=== PATIENT | female | born 1980 | race American Indian/Alaskan Native ===

== ENCOUNTER 2021-01-23 13:26 | Observation (INO) | payer MEDICAID ==
[2021-01-23] MEDS ORDERED: MORPHINE 4 MG/1 ML INJ IV ONE (14:37)
[2021-01-23] MEDS ORDERED: ONDANSETRON 4 MG/2 ML INJ IV ONE (14:37)
[2021-01-23] MEDS ORDERED: SODIUM CHLORIDE 0.9% 1000 ML 1,000 ML IV ONE (14:37)
--- NOTE | 2021-01-23 15:44 | Emergency Department Report ---
ED Abdominal Pain HPI - General Chief Complaint: Abdominal Pain Stated Complaint: BK/ABD PAIN/ VOMITING Time Seen by Provider: 01/23/21 14:36 Source: patient Mode of arrival: Ambulatory Limitations: No Limitations - History of Present Illness Initial Comments: Patient is a 40-year-old female presents emergency room complaints of left flank pain that radiates to her lower abdomen that began at 4 AM this morning. She has associated nausea and vomiting. She is having normal bowel movements. She states that she is also been having dysuria. She denies any fever, diarrhea, hematochezia, melena, hematemesis, abnormal vaginal discharge. Past medical history of nephrolithiasis requiring stent 2 years ago. Allergy to prochlorperazine and sumatriptan. She has a past abdominal surgical history of appendectomy and and hernia repair Severity scale (0 -10): 9 - Related Data Allergies Allergy/AdvReac Type Severity Reaction Status Date / Time prochlorperazine Allergy Swelling Verified 01/23/21 14:33 [From Compazine] sumatriptan [From Imitrex] Allergy Swelling Verified 01/23/21 14:33 ED Review of Systems ROS: Stated complaint: BK/ABD PAIN/ VOMITING Other details as noted in HPI Comment: All other systems reviewed and negative ED Physical Exam - General Limitations: No Limitations General appearance: alert, in no apparent distress - Head Head exam: Present: atraumatic, normocephalic - Eye Eye exam: Present: normal appearance - ENT ENT exam: Present: mucous membranes moist - Respiratory Respiratory exam: Present: normal lung sounds bilaterally. Absent: respiratory distress, wheezes, rales, rhonchi, stridor, chest wall tenderness, accessory muscle use, decreased breath sounds, prolonged expiratory - Cardiovascular Cardiovascular Exam: Present: regular rate, normal rhythm, normal heart sounds. Absent: systolic murmur, diastolic murmur, rubs, gallop - GI/Abdominal GI/Abdominal exam: Present: soft, tenderness (mild LLQ), normal bowel sounds. Absent: distended, guarding, rebound, rigid - Back Exam Back exam: Present: CVA tenderness (L). Absent: CVA tenderness (R) - Neurological Exam Neurological exam: Present: alert, oriented X3 - Psychiatric Psychiatric exam: Present: normal affect, normal mood - Skin Skin exam: Present: warm, dry, intact ED Course Vital Signs 01/23/21 01/23/21 01/23/21 14:29 20:18 20:29 Temperature 98 F 98.4 F 98.4 F Pulse Rate 93 H 94 H 91 H Respiratory 16 12 17 Rate Blood Pressure 131/74 143/85 Blood Pressure 159/90 [Right] O2 Sat by Pulse 97 100 100 Oximetry 01/23/21 01/23/21 20:33 21:03 Temperature 98.4 F 98.1 F Pulse Rate 84 92 H Respiratory 17 15 Rate Blood Pressure 143/85 144/91 Blood Pressure [Right] O2 Sat by Pulse 100 99 Oximetry - Consultations Consultation #1: 01/23/21 17:[address] Kwan, hospitalist who advised to consult Dr. Ley, support dba 01/23/21 18:[address] Ley, support dba he is going to consult on patient 01/23/21 19:[address] Ley, support dba he advised to give 2 unit pRBC and one unit of PLT and to admit to hospitalist service 01/23/21 20:[address] Kwan, hospitalist who accept and resume care of patient, will admit to hospitalist service ED Medical Decision Making - Lab Data Result diagrams: 01/23/21 20:04 01/23/21 15:15 Lab Results 01/23/21 01/23/21 01/23/21 Range/Units 15:15 15:15 16:20 WBC 1.7 L* (4.5-11.0) K/mm3 RBC 1.80 L (3.65-5.03) M/mm3 Hgb 5.9 L* (10.1-14.3) gm/dl Hct 17.5 L* (30.3-42.9) % MCV 97 (79-97) fl MCH 33 H (28-32) pg MCHC 34 (30-34) % RDW 14.8 (13.2-15.2) % Plt Count 19 L* (140-440) K/mm3 Lymph % (Auto) Store Standards Associate [place] % (Auto) Store Standards Associate Eos % (Auto) Store Standards Associate Baso % (Auto) Store Standards Associate Lymph # (Auto) Store Standards Associate [place] # (Auto) Store Standards Associate Eos # (Auto) Store Standards Associate Baso # (Auto) Store Standards Associate Add Manual Diff Complete Total Counted 100 Seg Neutrophils % Store Standards Associate Seg Neuts % (Manual) 18.0 L (40.0-70.0) % Lymphocytes % (Manual) 82.0 H (13.4-35.0) % Nucleated RBC % Not Reportable Seg Neutrophils # Store Standards Associate Seg Neutrophils # Man 0.3 L (1.8-7.7) K/mm3 Band Neutrophils # 0.0 K/mm3 Lymphocytes # (Manual) 1.4 (1.2-5.4) K/mm3 Abs React Lymphs (Man) 0.0 K/mm3 Monocytes # (Manual) 0.0 (0.0-0.8) K/mm3 Eosinophils # (Manual) 0.0 (0.0-0.4) K/mm3 Basophils # (Manual) 0.0 (0.0-0.1) K/mm3 Metamyelocytes # 0.0 K/mm3 Myelocytes # 0.0 K/mm3 Promyelocytes # 0.0 K/mm3 Blast Cells # 0.0 K/mm3 WBC Morphology Not Reportable Hypersegmented Neuts Few Hyposegmented Neuts Not Reportable Hypogranular Neuts Not Reportable Smudge Cells Not Reportable Toxic Granulation Not Reportable Toxic Vacuolation Not Reportable Dohle Bodies Not Reportable Pelger-Huet Anomaly Not Reportable Katie Rods Not Reportable Platelet Estimate Appears decreased Clumped Platelets Not Reportable Plt Clumps, EDTA Not Reportable Large Platelets Not Reportable Giant Platelets Not Reportable Platelet Satelliting Not Reportable Plt Morphology Comment Not Reportable RBC Morphology Normal Dimorphic RBCs Not Reportable Polychromasia Not Reportable Hypochromasia Not Reportable Poikilocytosis Not Reportable Anisocytosis Not Reportable Microcytosis Not Reportable Macrocytosis Not Reportable Spherocytes Not Reportable Pappenheimer Bodies Not Reportable Sickle Cells Not Reportable Target Cells Not Reportable Tear Drop Cells Not Reportable Ovalocytes Not Reportable Helmet Cells Not Reportable Jacobs-Sims Bodies Not Reportable [place] Rings Not Reportable [place] Cells Not Reportable Bite Cells Not Reportable Crenated Cell Not Reportable Elliptocytes Not Reportable Acanthocytes (Spur) Not Reportable Rouleaux Not Reportable Hemoglobin C Crystals Not Reportable Schistocytes Not Reportable Malaria parasites Not Reportable Fer Bodies Not Reportable Hem Pathologist Commnt No PT (12.2-14.9) Sec. INR (0.87-1.13) APTT (24.2-36.6) Sec. Fibrinogen (211-480) mg/dl Sodium 135 L (137-145) mmol/L Potassium 4.7 (3.6-5.0) mmol/L Chloride 105.1 (98-107) mmol/L Carbon Dioxide 18 L (22-30) mmol/L Anion Gap 17 mmol/L BUN 9 (7-17) mg/dL Creatinine 0.6 (0.6-1.2) mg/dL Estimated GFR > 60 ml/min BUN/Creatinine Ratio 15 % Glucose 83 (65-100) mg/dL Calcium 9.6 (8.4-10.2) mg/dL Total Bilirubin 0.30 (0.1-1.2) mg/dL AST 20 (5-40) units/L ALT 13 (7-56) units/L Alkaline Phosphatase 105 (35-129) units/L Lactate Dehydrogenase (91-180) units/L Total Protein 8.0 (6.3-8.2) g/dL Albumin 4.3 (3.9-5) g/dL Albumin/Globulin Ratio 1.2 % Lipase 19 (13-60) units/L HCG, Qual Negative (Negative) Urine Color (Yellow) Urine Turbidity (Clear) Urine pH (5.0-7.0) Ur Specific [place] (1.003-1.030) Urine Protein (Negative) mg/dL Urine Glucose (UA) (Negative) mg/dL Urine Ketones (Negative) mg/dL Urine Blood (Negative) Urine Nitrite (Negative) Urine Bilirubin (Negative) Urine Urobilinogen (<2.0) mg/dL Ur Leukocyte Esterase (Negative) Urine WBC (Auto) (0.0-6.0) /HPF Urine RBC (Auto) (0.0-6.0) /HPF U Epithel Cells (Auto) (0-13.0) /HPF Urine Mucus /HPF Blood Type Antibody Screen Crossmatch 01/23/21 01/23/21 01/23/21 Range/Units 17:05 17:56 18:43 WBC (4.5-11.0) K/mm3 RBC (3.65-5.03) M/mm3 Hgb (10.1-14.3) gm/dl Hct (30.3-42.9) % MCV (79-97) fl MCH (28-32) pg MCHC (30-34) % RDW (13.2-15.2) % Plt Count (140-440) K/mm3 Lymph % (Auto) [place] % (Auto) Eos % (Auto) Baso % (Auto) Lymph # (Auto) [place] # (Auto) Eos # (Auto) Baso # (Auto) Add Manual Diff Total Counted Seg Neutrophils % Seg Neuts % (Manual) (40.0-70.0) % Lymphocytes % (Manual) (13.4-35.0) % Nucleated RBC % Seg Neutrophils # Seg Neutrophils # Man (1.8-7.7) K/mm3 Band Neutrophils # K/mm3 Lymphocytes # (Manual) (1.2-5.4) K/mm3 Abs React Lymphs (Man) K/mm3 Monocytes # (Manual) (0.0-0.8) K/mm3 Eosinophils # (Manual) (0.0-0.4) K/mm3 Basophils # (Manual) (0.0-0.1) K/mm3 Metamyelocytes # K/mm3 Myelocytes # K/mm3 Promyelocytes # K/mm3 Blast Cells # K/mm3 WBC Morphology Hypersegmented Neuts Hyposegmented Neuts Hypogranular Neuts Smudge Cells Toxic Granulation Toxic Vacuolation Dohle Bodies Pelger-Huet Anomaly Ktaie Rods Platelet Estimate Clumped Platelets Plt Clumps, EDTA Large Platelets Giant Platelets Platelet Satelliting Plt Morphology Comment RBC Morphology Dimorphic RBCs Polychromasia Hypochromasia Poikilocytosis Anisocytosis Microcytosis Macrocytosis Spherocytes Pappenheimer Bodies Sickle Cells Target Cells Tear Drop Cells Ovalocytes Helmet Cells Jacobs-Sims Bodies [place] Rings [place] Cells Bite Cells Crenated Cell Elliptocytes Acanthocytes (Spur) Rouleaux Hemoglobin C Crystals Schistocytes Malaria parasites Fer Bodies Hem Pathologist Commnt PT 14.0 (12.2-14.9) Sec. INR 1.03 (0.87-1.13) APTT 23.4 L (24.2-36.6) Sec. Fibrinogen 212 (211-480) mg/dl Sodium (137-145) mmol/L Potassium (3.6-5.0) mmol/L Chloride (98-107) mmol/L Carbon Dioxide (22-30) mmol/L Anion Gap mmol/L BUN (7-17) mg/dL Creatinine (0.6-1.2) mg/dL Estimated GFR ml/min BUN/Creatinine Ratio % Glucose (65-100) mg/dL Calcium (8.4-10.2) mg/dL Total Bilirubin (0.1-1.2) mg/dL AST (5-40) units/L ALT (7-56) units/L Alkaline Phosphatase (35-129) units/L Lactate Dehydrogenase (91-180) units/L Total Protein (6.3-8.2) g/dL Albumin (3.9-5) g/dL Albumin/Globulin Ratio % Lipase (13-60) units/L HCG, Qual (Negative) Urine Color Yellow (Yellow) Urine Turbidity Slightly-cloudy (Clear) Urine pH 5.0 (5.0-7.0) Ur Specific [place] 1.021 (1.003-1.030) Urine Protein <15 mg/dl (Negative) mg/dL Urine Glucose (UA) Neg (Negative) mg/dL Urine Ketones Neg (Negative) mg/dL Urine Blood Neg (Negative) Urine Nitrite Neg (Negative) Urine Bilirubin Neg (Negative) Urine Urobilinogen < 2.0 (<2.0) mg/dL Ur Leukocyte Esterase Neg (Negative) Urine WBC (Auto) 1.0 (0.0-6.0) /HPF Urine RBC (Auto) 1.0 (0.0-6.0) /HPF U Epithel Cells (Auto) 5.0 (0-13.0) /HPF Urine Mucus Few /HPF Blood Type O POSITIVE Antibody Screen Negative Crossmatch See Detail 01/23/21 01/23/21 Range/Units 18:43 20:04 WBC 8.1 (4.5-11.0) K/mm3 RBC 3.42 L (3.65-5.03) M/mm3 Hgb 11.3 D (10.1-14.3) gm/dl Hct 33.5 D (30.3-42.9) % MCV 98 H (79-97) fl MCH 33 H (28-32) pg MCHC 34 (30-34) % RDW 15.0 (13.2-15.2) % Plt Count 283 D (140-440) K/mm3 Lymph % (Auto) 29.3 [place] % (Auto) 7.6 H Eos % (Auto) 0.2 Baso % (Auto) 0.6 Lymph # (Auto) 2.4 [place] # (Auto) 0.6 Eos # (Auto) 0.0 Baso # (Auto) 0.1 Add Manual Diff Total Counted Seg Neutrophils % 62.3 Seg Neuts % (Manual) (40.0-70.0) % Lymphocytes % (Manual) (13.4-35.0) % Nucleated RBC % Seg Neutrophils # 5.0 Seg Neutrophils # Man (1.8-7.7) K/mm3 Band Neutrophils # K/mm3 Lymphocytes # (Manual) (1.2-5.4) K/mm3 Abs React Lymphs (Man) K/mm3 Monocytes # (Manual) (0.0-0.8) K/mm3 Eosinophils # (Manual) (0.0-0.4) K/mm3 Basophils # (Manual) (0.0-0.1) K/mm3 Metamyelocytes # K/mm3 Myelocytes # K/mm3 Promyelocytes # K/mm3 Blast Cells # K/mm3 WBC Morphology Hypersegmented Neuts Hyposegmented Neuts Hypogranular Neuts Smudge Cells Toxic Granulation Toxic Vacuolation Dohle Bodies Pelger-Huet Anomaly Katie Rods Platelet Estimate Clumped Platelets Plt Clumps, EDTA Large Platelets Giant Platelets Platelet Satelliting Plt Morphology Comment RBC Morphology Dimorphic RBCs Polychromasia Hypochromasia Poikilocytosis Anisocytosis Microcytosis Macrocytosis Spherocytes Pappenheimer Bodies Sickle Cells Target Cells Tear Drop Cells Ovalocytes Helmet Cells Jacobs-Sims Bodies [place] Rings [place] Cells Bite Cells Crenated Cell Elliptocytes Acanthocytes (Spur) Rouleaux Hemoglobin C Crystals Schistocytes Malaria parasites Fer Bodies Hem Pathologist Commnt PT (12.2-14.9) Sec. INR (0.87-1.13) APTT (24.2-36.6) Sec. Fibrinogen (211-480) mg/dl Sodium (137-145) mmol/L Potassium (3.6-5.0) mmol/L Chloride (98-107) mmol/L Carbon Dioxide (22-30) mmol/L Anion Gap mmol/L BUN (7-17) mg/dL Creatinine (0.6-1.2) mg/dL Estimated GFR ml/min BUN/Creatinine Ratio % Glucose (65-100) mg/dL Calcium (8.4-10.2) mg/dL Total Bilirubin (0.1-1.2) mg/dL AST (5-40) units/L ALT (7-56) units/L Alkaline Phosphatase (35-129) units/L Lactate Dehydrogenase 295 H (91-180) units/L Total Protein (6.3-8.2) g/dL Albumin (3.9-5) g/dL Albumin/Globulin Ratio % Lipase (13-60) units/L HCG, Qual (Negative) Urine Color (Yellow) Urine Turbidity (Clear) Urine pH (5.0-7.0) Ur Specific [place] (1.003-1.030) Urine Protein (Negative) mg/dL Urine Glucose (UA) (Negative) mg/dL Urine Ketones (Negative) mg/dL Urine Blood (Negative) Urine Nitrite (Negative) Urine Bilirubin (Negative) Urine Urobilinogen (<2.0) mg/dL Ur Leukocyte Esterase (Negative) Urine WBC (Auto) (0.0-6.0) /HPF Urine RBC (Auto) (0.0-6.0) /HPF U Epithel Cells (Auto) (0-13.0) /HPF Urine Mucus /HPF Blood Type Antibody Screen Crossmatch - Radiology Data Radiology results: report reviewed Ordering Physician: PETR IRAHETA Date of Service: 01/23/21 Procedure(s): CT abdomen pelvis wo con Accession Number(s): [id number] cc: PETR IRAHETA CT ABDOMEN AND PELVIS WITHOUT CONTRAST INDICATION / CLINICAL INFORMATION: left flank pain, LLQ abd pain, n/v. TECHNIQUE: Axial CT images were obtained through the abdomen and pelvis without IV contrast. All CT scans at this location are performed using CT dose reduction for ALARA by means of automated exposure control. COMPARISON: None available. FINDINGS: LOWER CHEST: No significant abnormality LIVER: No significant abnormality GALLBLADDER/BILIARY TREE: Cholecystectomy. PANCREAS: No significant abnormality SPLEEN: No significant abnormality ADRENALS: No significant abnormality KIDNEYS / URETER: A few punctate nonobstructive left renal calculi are present. No ureteral calculus or hydronephrosis identified. URINARY BLADDER: Bladder is partially decompressed, though grossly unremarkable. REPRODUCTIVE ORGANS: No significant abnormality STOMACH / BOWEL: No significant abnormality. The appendix is not visualized, compatible with history of appendectomy. LYMPH NODES: No significant adenopathy. VASCULATURE: No significant abnormality. OTHER: 4.1 cm fat-containing lower ventral abdominal wall hernia noted. This is below the level of the umbilicus. There is no significant inflammatory stranding or bowel within the hernia sac. SKELETAL SYSTEM: Degenerative changes of the spine. No acute osseous findings. IMPRESSION: 1. No acute abnormality of the abdomen or pelvis. 2. Punctate left nephrolithiasis. No ureteral calculus or hydronephrosis. 3. No significant inflammation of a small lower ventral abdominal wall hernia. Signer Name: Glen Sweeney MD Signed: 01/23/2021 5:12 PM Workstation Name: [id number] Transcribed By: LAYLA Dictated By: GLEN SWEENEY MD Electronically Authenticated By: GLEN SWEENEY MD Signed Date/Time: 01/23/211711 DD/ 04 TD/TT: - Medical Decision Making Patient is a 40-year-old female presents emergency room complaints of left flank pain that radiates to her lower abdomen that began at 4 AM this morning. She has associated nausea and vomiting. She is having normal bowel movements. She states that she is also been having dysuria. She denies any fever, diarrhea, hematochezia, melena, hematemesis, abnormal vaginal discharge. Past medical history of nephrolithiasis requiring stent 2 years ago. Allergy to prochlorperazine and sumatriptan. She has a past abdominal surgical history of appendectomy and and hernia repair. Vitals are stable. On exam patient has left CVA and left lower quadrant tenderness, no guarding, no rebound, no rigidity, nor masses, no peritoneal signs. Labs significant for pancytopenia. UA is within normal limits. CT abdomen pelvis without contrast 1. No acute abnormality of the abdomen or pelvis. 2. Punctate left nephrolithiasis. No ureteral calculus or hydronephrosis. 3. No significant inflammation of a small lower ventral abdominal wall hernia. Patient given pain medications while the emergency department but continued to have pain, ordered IV Dilaudid. Discussed case with Dr. Néstor Palacios, ER attending who evaluated patient at bedside, he ordered 1 unit packed red blood cells and advised to admit to hospitalist service. spoke to Dr Ley, support dba he advised to give 2 unit pRBC and one unit of PLT and to admit to hospitalist service. Spoke to Dr. Kwan, hospitalist who accept and resume care of patient, will admit to hospitalist service Critical Care Time: Yes Critical care time in (mins) excluding proc time.: 30 Critical care attestation.: If time is entered above; I have spent that time in minutes in the direct care of this critically ill patient, excluding procedure time. Critical Care Time: Critical care time includes reexaminations, interpretation of laboratory and diagnostic studies, consultations ED Disposition Clinical Impression: Left flank pain, Pancytopenia, Nephrolithiasis Abdominal pain Qualifiers: Abdominal location: left lower quadrant Qualified Code(s): R10.32 - Left lower quadrant pain Nausea & vomiting Qualifiers: Vomiting type: unspecified Vomiting Intractability: non-intractable Qualified Code(s): R11.2 - Nausea with vomiting, unspecified Disposition: 02 SHORT TERM HOSPITAL Is pt being admited?: Yes Does the pt Need Aspirin: No Condition: Fair
[2021-01-23 16:05] LABS: Alanine Aminotransferase 13 units/L (7-56); Albumin 4.3 g/dL (3.9-5); Blood Urea Nitrogen 9 mg/dL (7-17); Calcium 9.6 mg/dL (8.4-10.2); Hemolysis Index 89
[2021-01-23 16:10] LABS: BUN/Creatinine Ratio 15
--- NOTE | 2021-01-23 17:16 | Cat Scan Report ---
CT ABDOMEN AND PELVIS WITHOUT CONTRAST INDICATION / CLINICAL INFORMATION: left flank pain, LLQ abd pain, n/v. TECHNIQUE: Axial CT images were obtained through the abdomen and pelvis without IV contrast. All CT scans at this location are performed using CT dose reduction for ALARA by means of automated exposure control. COMPARISON: None available. FINDINGS: LOWER CHEST: No significant abnormality LIVER: No significant abnormality GALLBLADDER/BILIARY TREE: Cholecystectomy. PANCREAS: No significant abnormality SPLEEN: No significant abnormality ADRENALS: No significant abnormality KIDNEYS / URETER: A few punctate nonobstructive left renal calculi are present. No ureteral calculus or hydronephrosis identified. URINARY BLADDER: Bladder is partially decompressed, though grossly unremarkable. REPRODUCTIVE ORGANS: No significant abnormality STOMACH / BOWEL: No significant abnormality. The appendix is not visualized, compatible with history of appendectomy. LYMPH NODES: No significant adenopathy. VASCULATURE: No significant abnormality. OTHER: 4.1 cm fat-containing lower ventral abdominal wall hernia noted. This is below the level of th e umbilicus. There is no significant inflammatory stranding or bowel within the hernia sac. SKELETAL SYSTEM: Degenerative changes of the spine. No acute osseous findings. IMPRESSION: 1. No acute abnormality of the abdomen or pelvis. 2. Punctate left nephrolithiasis. No ureteral calculus or hydronephrosis. 3. No significant inflammation of a small lower ventral abdominal wall hernia. Signer Name: Marko Sweeney MD Signed: 01/23/2021 5:12 PM Workstation Name: [id number]
[2021-01-23 17:33] LABS: Bilirubin,Urine NEG (Negative); Blood,Urine NEG (Negative); Color,Urine Yellow (Yellow); Mucus,Urine FEW /HPF; Protein,Urine <15 mg/dL mg/dL (Negative); Urobilinogen,Urine < 2.0 mg/dL (<2.0)
[2021-01-23] MEDS ORDERED: SODIUM CHLORIDE 0.9% 500 ML 500 ML IV ONE ×2 (17:47→19:23)
[2021-01-23] MEDS ORDERED: HYDROmorphone 1 MG/1 ML INJ IV ONE (17:53)
--- NOTE | 2021-01-23 19:04 | Event Note ---
Face to Face: For this encounter I have reviewed the PA/IMAGER documentation, treatment plan, medical decision making, and I had face to face time with this patient. Patient presented with left flank pain starting today. Found to have pancytopenia on laboratory studies. Heme-onc has been consulted. Patient was seen [id number] is having some discomfort reminiscent of a kidney stone however no obstructing uropathy was found.
[2021-01-23 19:16] LABS: INR 1.03 (0.87-1.13)
[2021-01-23 19:17] LABS: Partial Thromboplastin Time 23.4 Sec. (24.2-36.6)
--- NOTE | 2021-01-23 19:56 | History and Physical Report ---
History of Present Illness Chief complaint: My side hurts History of present illness: 40 YO Female with Obesity Hypoventilation Syndrome, Nephrolithiasis S/P Stent Placement presents to ED for evaluation. Patient reports "my side hurts". Patient states that she experienced abdominal discomfort that began at approxi mately 0400 hrs. and has persisted since that time. Patient acknowledges nausea, patient knowledges several episodes of vomiting, as well as dysuria. Patient transported to [facility] via private vehicle for further care and evaluation of the aforementioned symptoms. The patient was seen and evaluated in the emergency department. All lab and imaging studies reviewed. Patient underwent CT scan of the abdomen and pelvis and was found to have chronic nephrolithiasis with the aforementioned symptoms suspected secondary to nephrolithiasis. Patient denies fever, chills, chest pain, palpitation, productive cough, skin rash, recent ill contacts, or known exposure to COVID-19. No prior admission for review. All medication listed at time of admission has been reconciled. Patient found to have pancytopenia in the emergency department. Hematology service consulted. Patient pending repeat CBC. Past History Past Medical History: other (Nephrolithiasis) Past Surgical History: No surgical history Social history: single. denies: smoking, alcohol abuse, prescription drug abuse Family history: hypertension Medications and Allergies Allergies Allergy/AdvReac Type Severity Reaction Status Date / Time prochlorperazine Allergy Swelling Verified 01/23/21 14:33 [From Compazine] sumatriptan [From Imitrex] Allergy Swelling Verified 01/23/21 14:33 Review of Systems Constitutional: no weight loss, no weight gain, no fever, no chills Ears, nose, mouth and throat: no ear pain, no tinnitis, no decreased hearing, no nasal congestion, no nasal discharge Cardiovascular: no chest pain, no palpitations, no rapid/irregular heart beat, no edema, no lightheadedness Respiratory: no cough, no cough with sputum, no excessive sputum, no hemoptysis, no shortness of breath Gastrointestinal: abdominal pain, nausea, vomiting Genitourinary Female: flank pain, dysuria, no pelvic pain, no urinary frequency, no urgency, no hematuria Rectal: no pain, no incontinence, no bleeding Musculoskeletal: no neck stiffness, no arm numbness/tingling Integumentary: no rash, no pruritis, no sores, no boils Neurological: no head injury, no weakness, no numbness, no tingling, no seizures Psychiatric: no anxiety, no memory loss, no sleep disturbances, no hypersomnia, no change in appetite, no change in libido, no disorientation Endocrine: no cold intolerance, no heat intolerance, no excessive thirst, no nocturia, no flushing Hematologic/Lymphatic: no easy bruising, no easy bleeding, no lymphadenopathy Allergic/Immunologic: no urticaria, no allergic rhinitis, no wheezing, no pers istent infections, no angioedema Exam - Constitutional Vitals: Temp Pulse Resp BP Pulse Ox 98 F 93 H 16 159/90 97 01/23/21 14:29 01/23/21 14:29 01/23/21 14:29 01/23/21 14:29 01/23/21 14:29 General appearance: Present: mild distress, obese - EENT Eyes: Present: PERRL ENT: hearing intact, clear oral mucosa - Neck Neck: Present: supple, normal ROM - Respiratory Respiratory effort: normal Respiratory: bilateral: CTA - Cardiovascular Heart Sounds: Present: S1 & S2. Absent: rub, click - Extremities Extremities: pulses symmetrical, No edema Peripheral Pulses: within normal limits - Abdominal General gastrointestinal: Present: soft, non-tender, non-distended, normal bowel sounds Female genitourinary: Present: normal - Integumentary Integumentary: Present: clear, warm, dry - Musculoskeletal Musculoskeletal: gait normal, strength equal bilaterally - Psychiatric Psychiatric: appropriate mood/affect, intact judgment & insight - Neurologic Neurologic: CNII-XII intact, moves all extremities Results - Labs CBC & Chem 7: 01/23/21 16:20 01/23/21 15:15 Labs: Abnormal lab results 01/23/21 01/23/21 01/23/21 Range/Units 15:15 16:20 17:56 WBC 1.7 L* (4.5-11.0) K/mm3 RBC 1.80 L (3.65-5.03) M/mm3 Hgb 5.9 L* (10.1-14.3) gm/dl Hct 17.5 L* (30.3-42.9) % MCH 33 H (28-32) pg Plt Count 19 L* (140-440) K/mm3 APTT (24.2-36.6) Sec. Sodium 135 L (137-145) mmol/L Carbon Dioxide 18 L (22-30) mmol/L Lactate Dehydrogenase (91-180) units/L Crossmatch See Detail 01/23/21 01/23/21 Range/Units 18:43 18:43 WBC (4.5-11.0) K/mm3 RBC (3.65-5.03) M/mm3 Hgb (10.1-14.3) gm/dl Hct (30.3-42.9) % MCH (28-32) pg Plt Count (140-440) K/mm3 APTT 23.4 L (24.2-36.6) Sec. Sodium (137-145) mmol/L Carbon Dioxide (22-30) mmol/L Lactate Dehydrogenase 295 H (91-180) units/L Crossmatch Assessment and Plan - Patient Problems (1) Nephrolithiasis Current Visit: Yes Status: Acute Plan to address problem: Bowel rest, IV fluid resuscitation therapy, antiemetic therapy, pain control. Outpatient urology follow-up. (2) Obesity hypoventilation syndrome Current Visit: Yes Status: Acute Plan to address problem: Balanced diet, increase physical activity at discharge, outpatient pulmonary follow-up for sleep study, (3) Nausea & vomiting Current Visit: Yes Status: Acute Qualifiers: Vomiting type: unspecified Vomiting Intractability: non-intractable Qualified Code(s): R11.2 - Nausea with vomiting, unspecified (4) Pancytopenia Current Visit: Yes Status: Acute Plan to address problem: CBC, repeat CBC stat to rule out lab error. Hematology service consulted. (5) DVT prophylaxis Current Visit: Yes Status: Acute Plan to address problem: SCD to bilateral lower extremities while in bed, patient is amatory
[2021-01-23] MEDS ORDERED: HYDROmorphone 1 MG/1 ML INJ IV PRN ×2 (20:06→21:59)
[2021-01-23] MEDS ORDERED: ACETAMINOPHEN 325 MG TAB PO PRN (20:06)
[2021-01-23] MEDS ORDERED: oxyCODONE /ACETAMINOPHEN 5-325MG TAB PO PRN (20:06)
[2021-01-23] MEDS ORDERED: ALBUTEROL 2.5 MG/3 ML NEBU IH PRN (20:06)
[2021-01-23] MEDS ORDERED: ONDANSETRON 4 MG/2 ML INJ IV PRN (20:06)
[2021-01-23] MEDS ORDERED: SODIUM CHLORIDE 0.9% 1000 ML 1,000 ML IV SCH (20:15)
--- NOTE | 2021-01-23 20:30 | Hem/Onc Consultation ---
History of Present Illness - Reason for Consult Consult date: 01/23/21 - History of Present Illness Televisit consult note CPT: 73824 Dx: Pancytopenia 40yo female in to the emergency room with Left sided flank pain since 4am today denies noticeable bleeding or difficulty urinating Pt with history of kidney stone--CT with evidence of L kidney stone Covid infection in August Admits to feeling tired x 4 days Menstrual cycles heavier and more painful than usual for the last 4 months--LMP 01/05/2021 was very heavy + Ice craving, + fatigue Denies gingival bleeding, nose bleeds, and bruises IMP: Abn CBC-->repeat CBC was normal PLAN/RECOMMENDATIONS: awaiting another Repeat CBC if still low --> RBC and plt transfusions d/w ER DATA REVIEWED BELOW Laboratory Last Values WBC 1.7 K/mm3 (4.5-11.0) L* 01/23/21 16:20 RBC 1.80 M/mm3 (3.65-5.03) L 01/23/21 16:20 Hgb 5.9 gm/dl (10.1-14.3) L* 01/23/21 16:20 Hct 17.5 % (30.3-42.9) L* 01/23/21 16:20 MCV 97 fl (79-97) 01/23/21 16:20 MCH 33 pg (28-32) H 01/23/21 16:20 MCHC 34 % (30-34) 01/23/21 16:20 RDW 14.8 % (13.2-15.2) 01/23/21 16:20 Plt Count 19 K/mm3 (140-440) L* 01/23/21 16:20 Lymph % (Auto) Cavity Pump Operator 01/23/21 16:20 [place] % (Auto) Cavity Pump Operator 01/23/21 16:20 Eos % (Auto) Cavity Pump Operator 01/23/21 16:20 Baso % (Auto) Cavity Pump Operator 01/23/21 16:20 Lymph # (Auto) Cavity Pump Operator 01/23/21 16:20 [place] # (Auto) Cavity Pump Operator 01/23/21 16:20 Eos # (Auto) Cavity Pump Operator 01/23/21 16:20 Baso # (Auto) Cavity Pump Operator 01/23/21 16:20 Add Manual Diff Complete 01/23/21 16:20 Total Counted 100 01/23/21 16:20 Seg Neutrophils % Cavity Pump Operator 01/23/21 16:20 Seg Neuts % (Manual) 18.0 % (40.0-70.0) L 01/23/21 16:20 Lymphocytes % (Manual) 82.0 % (13.4-35.0) H 01/23/21 16:20 Nucleated RBC % Not Reportable 01/23/21 16:20 Seg Neutrophils # Cavity Pump Operator 01/23/21 16:20 Seg Neutrophils # Man 0.3 K/mm3 (1.8-7.7) L 01/23/21 16:20 Band Neutrophils # 0.0 K/mm3 01/23/21 16:20 Lymphocytes # (Manual) 1.4 K/mm3 (1.2-5.4) 01/23/21 16:20 Abs React Lymphs (Man) 0.0 K/mm3 01/23/21 16:20 Monocytes # (Manual) 0.0 K/mm3 (0.0-0.8) 01/23/21 16:20 Eosinophils # (Manual) 0.0 K/mm3 (0.0-0.4) 01/23/21 16:20 Basophils # (Manual) 0.0 K/mm3 (0.0-0.1) 01/23/21 16:20 Metamyelocytes # 0.0 K/mm3 01/23/21 16:20 Myelocytes # 0.0 K/mm3 01/23/21 16:20 Promyelocytes # 0.0 K/mm3 01/23/21 16:20 Blast Cells # 0.0 K/mm3 01/23/21 16:20 Sickle Cells Not Reportable 01/23/21 16:20 PT 14.0 Sec. (12.2-14.9) 01/23/21 18:43 INR 1.03 (0.87-1.13) 01/23/21 18:43 APTT 23.4 Sec. (24.2-36.6) L 01/23/21 18:43 Fibrinogen 212 mg/dl (211-480) 01/23/21 18:43 Lactate Dehydrogenase 295 units/L (91-180) H 01/23/21 18:43 Past History Past Medical History: other (Nephrolithiasis) Medications and Allergies Allergies Allergy/AdvReac Type Severity Reaction Status Date / Time prochlorperazine Allergy Swelling Verified 01/23/21 14:33 [From Compazine] sumatriptan [From Imitrex] Allergy Swelling Verified 01/23/21 14:33 Active Meds: Active Medications Acetaminophen (Acetaminophen 325 Mg Tab) 650 mg PO Q4H PRN PRN Reason: Pain MILD(1-3)/Fever >100.5/RASHID Albuterol (Albuterol 2.5 Mg/3 Ml Nebu) 2.5 mg IH Q4HRT PRN PRN Reason: Shortness Of Breath Hydromorphone HCl (Hydromorphone 1 Mg/1 Ml Inj) 0.5 mg IV Q12H PRN PRN Reason: Pain , Severe (7-10) Sodium Chloride (Nacl 0.9% 1000 Ml) 1,000 mls @ 42 mls/hr IV DIRECT ANNAMARIA Ondansetron HCl (Ondansetron 4 Mg/2 Ml Inj) 4 mg IV Q8H PRN PRN Reason: Nausea And Vomiting Oxycodone/Acetaminophen (Oxycodone /Acetaminophen 5-325mg Tab) 1 tab PO Q12H PRN PRN Reason: Pain, Moderate (4-6) Sodium Chloride (Sodium Chloride 0.9% 10 Ml Flush Syringe) 10 ml IV BID ANNAMARIA Sodium Chloride (Sodium Chloride 0.9% 10 Ml Flush Syringe) 10 ml IV PRN PRN PRN Reason: LINE FLUSH Exam - Constitutional Vitals: Last Vital Signs Temp 98 F 01/23/21 14:29 Pulse 93 H 01/23/21 14:29 Resp 16 01/23/21 14:29 BP 159/90 01/23/21 14:29 Pulse Ox 97 01/23/21 14:29 Results - Labs lab Results: Laboratory Results - last 24 hr 01/23/21 01/23/21 01/23/21 15:15 15:15 16:20 WBC 1.7 L* RBC 1.80 L Hgb 5.9 L* Hct 17.5 L* MCV 97 MCH 33 H MCHC 34 RDW 14.8 Plt Count 19 L* Lymph % (Auto) Cavity Pump Operator [place] % (Auto) Cavity Pump Operator Eos % (Auto) Cavity Pump Operator Baso % (Auto) Cavity Pump Operator Lymph # (Auto) Cavity Pump Operator [place] # (Auto) Cavity Pump Operator Eos # (Auto) Cavity Pump Operator Baso # (Auto) Cavity Pump Operator Seg Neutrophils % Cavity Pump Operator Seg Neutrophils # Cavity Pump Operator PT INR APTT Fibrinogen Sodium 135 L Potassium 4.7 Chloride 105.1 Carbon Dioxide 18 L Anion Gap 17 BUN 9 Creatinine 0.6 Estimated GFR > 60 BUN/Creatinine Ratio 15 Glucose 83 Calcium 9.6 Total Bilirubin 0.30 AST 20 ALT 13 Alkaline Phosphatase 105 Lactate Dehydrogenase Total Protein 8.0 Albumin 4.3 Albumin/Globulin Ratio 1.2 Lipase 19 HCG, Qual Negative Urine Color Urine Turbidity Urine pH Ur Specific [place] Urine Protein Urine Glucose (UA) Urine Ketones Urine Blood Urine Nitrite Urine Bilirubin Urine Urobilinogen Ur Leukocyte Esterase Urine WBC (Auto) Urine RBC (Auto) U Epithel Cells (Auto) Urine Mucus Blood Type Antibody Screen Crossmatch 01/23/21 01/23/21 01/23/21 17:05 17:56 18:43 WBC RBC Hgb Hct MCV MCH MCHC RDW Plt Count Lymph % (Auto) [place] % (Auto) Eos % (Auto) Baso % (Auto) Lymph # (Auto) [place] # (Auto) Eos # (Auto) Baso # (Auto) Seg Neutrophils % Seg Neutrophils # PT 14.0 INR 1.03 APTT 23.4 L Fibrinogen 212 Sodium Potassium Chloride Carbon Dioxide Anion Gap BUN Creatinine Estimated GFR BUN/Creatinine Ratio Glucose Calcium Total Bilirubin AST ALT Alkaline Phosphatase Lactate Dehydrogenase Total Protein Albumin Albumin/Globulin Ratio Lipase HCG, Qual Urine Color Yellow Urine Turbidity Slightly-cloudy Urine pH 5.0 Ur Specific [place] 1.021 Urine Protein <15 mg/dl Urine Glucose (UA) Neg Urine Ketones Neg Urine Blood Neg Urine Nitrite Neg Urine Bilirubin Neg Urine Urobilinogen < 2.0 Ur Leukocyte Esterase Neg Urine WBC (Auto) 1.0 Urine RBC (Auto) 1.0 U Epithel Cells (Auto) 5.0 Urine Mucus Few Blood Type O POSITIVE Antibody Screen Negative Crossmatch See Detail 01/23/21 18:43 WBC RBC Hgb Hct MCV MCH MCHC RDW Plt Count Lymph % (Auto) [place] % (Auto) Eos % (Auto) Baso % (Auto) Lymph # (Auto) [place] # (Auto) Eos # (Auto) Baso # (Auto) Seg Neutrophils % Seg Neutrophils # PT INR APTT Fibrinogen Sodium Potassium Chloride Carbon Dioxide Anion Gap BUN Creatinine Estimated GFR BUN/Creatinine Ratio Glucose Calcium Total Bilirubin AST ALT Alkaline Phosphatase Lactate Dehydrogenase 295 H Total Protein Albumin Albumin/Globulin Ratio Lipase HCG, Qual Urine Color Urine Turbidity Urine pH Ur Specific [place] Urine Protein Urine Glucose (UA) Urine Ketones Urine Blood Urine Nitrite Urine Bilirubin Urine Urobilinogen Ur Leukocyte Esterase Urine WBC (Auto) Urine RBC (Auto) U Epithel Cells (Auto) Urine Mucus Blood Type Antibody Screen Crossmatch
[2021-01-23 20:46] LABS: Basophils # (Auto) 0.1 K/mm3 (0.0-0.1); Basophils % (Auto) 0.6 % (0.0-1.8); Eosinophils % (Auto) 0.2 % (0.0-4.3); Hematocrit 33.5 % (30.3-42.9); Hemoglobin 11.3 gm/dl (10.1-14.3); Lymphocytes # (Auto) 2.4 K/mm3 (1.2-5.4); Lymphocytes % (Auto) 29.3 % (13.4-35.0); Mean Corpuscular HGB Conc 34 % (30-34); Mean Corpuscular Volume 98 fl (79-97); Monocytes # (Auto) 0.6 K/mm3 (0.0-0.8); Monocytes % (Auto) 7.6 % (0.0-7.3); Platelet Count 283 K/mm3 (140-440); Red Blood Count 3.42 M/mm3 (3.65-5.03)
[2021-01-23 21:15] LABS: Total Cells Counted TNR
[2021-01-23 21:16] LABS: Hypersegmented Neutrophils TNR
[2021-01-23 21:17] LABS: Platelet Estimate TNR; RBC Morphology TNR
[2021-01-23 21:33] LABS: Basophils # (Auto) 0.1 K/mm3 (0.0-0.1); Basophils % (Auto) 0.7 % (0.0-1.8); Eosinophils % (Auto) 0.3 % (0.0-4.3); Hematocrit 32.3 % (30.3-42.9); Hemoglobin 10.9 gm/dl (10.1-14.3); Lymphocytes # (Auto) 2.4 K/mm3 (1.2-5.4); Lymphocytes % (Auto) 29.2 % (13.4-35.0); Mean Corpuscular HGB Conc 34 % (30-34); Mean Corpuscular Volume 97 fl (79-97); Monocytes # (Auto) 0.7 K/mm3 (0.0-0.8); Monocytes % (Auto) 7.9 % (0.0-7.3); Platelet Count 270 K/mm3 (140-440); Red Blood Count 3.33 M/mm3 (3.65-5.03); Red Cell Distribution Width 14.6 % (13.2-15.2)
[2021-01-23 21:48] VITALS: BP 144/87
[2021-01-23 22:09] LABS: Hematocrit 17.5 % (30.3-42.9); Hemoglobin 5.9 gm/dl (10.1-14.3); Mean Corpuscular Volume 97 fl (79-97)
[2021-01-23 22:10] LABS: Lymphocytes % (Auto) 73.1 % (13.4-35.0); Mean Corpuscular HGB Conc 34 % (30-34); Platelet Count 19 K/mm3 (140-440); Red Cell Distribution Width 14.8 % (13.2-15.2)
[2021-01-23 22:11] LABS: Basophils % (Auto) 1.3 % (0.0-1.8); Eosinophils % (Auto) 0.5 % (0.0-4.3); Lymphocytes # (Auto) 1.3 K/mm3 (1.2-5.4); Monocytes # (Auto) 0.1 K/mm3 (0.0-0.8)
--- NOTE | 2021-01-24 09:32 | Progress Note ---
Assessment and Plan Assessment and plan: (1) Nephrolithiasis Current Visit: Yes Status: Acute Plan to address problem: Bowel rest, IV fluid resuscitation therapy, antiemetic therapy, pain control. Outpatient urology follow-up. (2) Obesity hypoventilation syndrome Current Visit: Yes Status: Acute Plan to address problem: Balanced diet, increase physical activity at discharge, outpatient pulmonary follow-up for sleep study, (3) Nausea & vomiting Current Visit: Yes Status: Acute Qualifiers: Vomiting type: unspecified Vomiting Intractability: non-intractable Qualified Code(s): R11.2 - Nausea with vomiting, unspecified (4) Pancytopenia Current Visit: Yes Status: Acute Plan to address problem: CBC, repeat CBC stat to rule out lab error. Hematology service consulted. Repeat test show better WBC, RBC, Hb, platelets numbers Hematology following (5) DVT prophylaxis Current Visit: Yes Status: Acute Plan to address problem: SCD to bilateral lower extremities while in bed, patient is amatory Hospitalist Physical - Constitutional Vitals: Temp Pulse Resp BP Pulse Ox 98.4 F 84 16 144/87 100 01/23/21 21:48 01/23/21 21:48 01/23/21 21:48 01/23/21 21:48 01/23/21 21:48 General appearance: Present: mild distress, obese Results - Labs CBC & Chem 7: 01/23/21 21:25 01/23/21 15:15 Labs: Laboratory Last Values WBC 8.3 K/mm3 (4.5-11.0) 01/23/21 21:25 RBC 3.33 M/mm3 (3.65-5.03) L 01/23/21 21:25 Hgb 10.9 gm/dl (10.1-14.3) 01/23/21 21:25 Hct 32.3 % (30.3-42.9) 01/23/21 21:25 MCV 97 fl (79-97) 01/23/21 21:25 MCH 33 pg (28-32) H 01/23/21 21:25 MCHC 34 % (30-34) 01/23/21 21:25 RDW 14.6 % (13.2-15.2) 01/23/21 21:25 Plt Count 270 K/mm3 (140-440) 01/23/21 21:25 Lymph % (Auto) 29.2 % (13.4-35.0) 01/23/21 21:25 [place] % (Auto) 7.9 % (0.0-7.3) H 01/23/21 21:25 Eos % (Auto) 0.3 % (0.0-4.3) 01/23/21 21:25 Baso % (Auto) 0.7 % (0.0-1.8) 01/23/21 21:25 Lymph # (Auto) 2.4 K/mm3 (1.2-5.4) 01/23/21 21:25 [place] # (Auto) 0.7 K/mm3 (0.0-0.8) 01/23/21 21:25 Eos # (Auto) 0.0 K/mm3 (0.0-0.4) 01/23/21 21:25 Baso # (Auto) 0.1 K/mm3 (0.0-0.1) 01/23/21 21:25 Add Manual Diff TNR 01/23/21 16:20 Total Counted TNR 01/23/21 16:20 Seg Neutrophils % 61.9 % (40.0-70.0) 01/23/21 21:25 Seg Neuts % (Manual) TNR 01/23/21 16:20 Lymphocytes % (Manual) TNR 01/23/21 16:20 Nucleated RBC % Not Reportable 01/23/21 16:20 Seg Neutrophils # 5.1 K/mm3 (1.8-7.7) 01/23/21 21:25 Seg Neutrophils # Man TNR 01/23/21 16:20 Band Neutrophils # 0.0 K/mm3 01/23/21 16:20 Lymphocytes # (Manual) TNR 01/23/21 16:20 Abs React Lymphs (Man) 0.0 K/mm3 01/23/21 16:20 Monocytes # (Manual) 0.0 K/mm3 (0.0-0.8) 01/23/21 16:20 Eosinophils # (Manual) 0.0 K/mm3 (0.0-0.4) 01/23/21 16:20 Basophils # (Manual) 0.0 K/mm3 (0.0-0.1) 01/23/21 16:20 Metamyelocytes # 0.0 K/mm3 01/23/21 16:20 Myelocytes # 0.0 K/mm3 01/23/21 16:20 Promyelocytes # 0.0 K/mm3 01/23/21 16:20 Blast Cells # 0.0 K/mm3 01/23/21 16:20 WBC Morphology Not Reportable 01/23/21 16:20 Hypersegmented Neuts TNR 01/23/21 16:20 Hyposegmented Neuts Not Reportable 01/23/21 16:20 Hypogranular Neuts Not Reportable 01/23/21 16:20 Smudge Cells Not Reportable 01/23/21 16:20 Toxic Granulation Not Reportable 01/23/21 16:20 Toxic Vacuolation Not Reportable 01/23/21 16:20 Dohle Bodies Not Reportable 01/23/21 16:20 Pelger-Huet Anomaly Not Reportable 01/23/21 16:20 Katie Rods Not Reportable 01/23/21 16:20 Platelet Estimate TNR 01/23/21 16:20 Clumped Platelets Not Reportable 01/23/21 16:20 Plt Clumps, EDTA Not Reportable 01/23/21 16:20 Large Platelets Not Reportable 01/23/21 16:20 Giant Platelets Not Reportable 01/23/21 16:20 Platelet Satelliting Not Reportable 01/23/21 16:20 Plt Morphology Comment Not Reportable 01/23/21 16:20 RBC Morphology TNR 01/23/21 16:20 Dimorphic RBCs Not Reportable 01/23/21 16:20 Polychromasia Not Reportable 01/23/21 16:20 Hypochromasia Not Reportable 01/23/21 16:20 Poikilocytosis Not Reportable 01/23/21 16:20 Anisocytosis Not Reportable 01/23/21 16:20 Microcytosis Not Reportable 01/23/21 16:20 Macrocytosis Not Reportable 01/23/21 16:20 Spherocytes Not Reportable 01/23/21 16:20 Pappenheimer Bodies Not Reportable 01/23/21 16:20 Sickle Cells Not Reportable 01/23/21 16:20 Target Cells Not Reportable 01/23/21 16:20 Tear Drop Cells Not Reportable 01/23/21 16:20 Ovalocytes Not Reportable 01/23/21 16:20 Helmet Cells Not Reportable 01/23/21 16:20 [place] Bodies Not Reportable 01/23/21 16:20 [place] Rings Not Reportable 01/23/21 16:20 Papito Cells Not Reportable 01/23/21 16:20 Bite Cells Not Reportable 01/23/21 16:20 Crenated Cell Not Reportable 01/23/21 16:20 Elliptocytes Not Reportable 01/23/21 16:20 Acanthocytes (Spur) Not Reportable 01/23/21 16:20 Rouleaux Not Reportable 01/23/21 16:20 Hemoglobin C Crystals Not Reportable 01/23/21 16:20 Schistocytes Not Reportable 01/23/21 16:20 Malaria parasites Not Reportable 01/23/21 16:20 Fer Bodies Not Reportable 01/23/21 16:20 Hem Pathologist Commnt TNR 01/23/21 16:20 PT 14.0 Sec. (12.2-14.9) 01/23/21 18:43 INR 1.03 (0.87-1.13) 01/23/21 18:43 APTT 23.4 Sec. (24.2-36.6) L 01/23/21 18:43 Fibrinogen 212 mg/dl (211-480) 01/23/21 18:43 Sodium 135 mmol/L (137-145) L 01/23/21 15:15 Potassium 4.7 mmol/L (3.6-5.0) 01/23/21 15:15 Chloride 105.1 mmol/L (98-107) 01/23/21 15:15 Carbon Dioxide 18 mmol/L (22-30) L 01/23/21 15:15 Anion Gap 17 mmol/L 01/23/21 15:15 BUN 9 mg/dL (7-17) 01/23/21 15:15 Creatinine 0.6 mg/dL (0.6-1.2) 01/23/21 15:15 Estimated GFR > 60 ml/min 01/23/21 15:15 BUN/Creatinine Ratio 15 % 01/23/21 15:15 Glucose 83 mg/dL (65-100) 01/23/21 15:15 Calcium 9.6 mg/dL (8.4-10.2) 01/23/21 15:15 Total Bilirubin 0.30 mg/dL (0.1-1.2) 01/23/21 15:15 AST 20 units/L (5-40) 01/23/21 15:15 ALT 13 units/L (7-56) 01/23/21 15:15 Alkaline Phosphatase 105 units/L (35-129) 01/23/21 15:15 Lactate Dehydrogenase 295 units/L (91-180) H 01/23/21 18:43 Total Protein 8.0 g/dL (6.3-8.2) 01/23/21 15:15 Albumin 4.3 g/dL (3.9-5) 01/23/21 15:15 Albumin/Globulin Ratio 1.2 % 01/23/21 15:15 Lipase 19 units/L (13-60) 01/23/21 15:15 HCG, Qual Negative (Negative) 01/23/21 15:15 Urine Color Yellow (Yellow) 01/23/21 17:05 Urine Turbidity Slightly-cloudy (Clear) 01/23/21 17:05 Urine pH 5.0 (5.0-7.0) 01/23/21 17:05 Ur Specific [place] 1.021 (1.003-1.030) 01/23/21 17:05 Urine Protein <15 mg/dl mg/dL (Negative) 01/23/21 17:05 Urine Glucose (UA) Neg mg/dL (Negative) 01/23/21 17:05 Urine Ketones Neg mg/dL (Negative) 01/23/21 17:05 Urine Blood Neg (Negative) 01/23/21 17:05 Urine Nitrite Neg (Negative) 01/23/21 17:05 Urine Bilirubin Neg (Negative) 01/23/21 17:05 Urine Urobilinogen < 2.0 mg/dL (<2.0) 01/23/21 17:05 Ur Leukocyte Esterase Neg (Negative) 01/23/21 17:05 Urine WBC (Auto) 1.0 /HPF (0.0-6.0) 01/23/21 17:05 Urine RBC (Auto) 1.0 /HPF (0.0-6.0) 01/23/21 17:05 U Epithel Cells (Auto) 5.0 /HPF (0-13.0) 01/23/21 17:05 Urine Mucus Few /HPF 01/23/21 17:05 Blood Type O POSITIVE 01/23/21 17:56 Antibody Screen Negative 01/23/21 17:56 Crossmatch See Detail 01/23/21 17:56 Active Medications - Current Medications Current Medications: Generic Name Dose Route Start Last Admin Trade Name Missaelq PRN Reason Stop Dose Admin Acetaminophen 650 mg 01/23/21 20:06 Acetaminophen 325 Mg Tab PO Q4H PRN Pain MILD(1-3)/Fever >100.5/RASHID Albuterol 2.5 mg 01/23/21 20:06 Albuterol 2.5 Mg/3 Ml Nebu IH Q4HRT PRN Shortness Of Breath Hydromorphone HCl 0.5 mg 01/23/21 20:06 Hydromorphone 1 Mg/1 Ml Inj IV Q12H PRN Pain , Severe (7-10) Hydromorphone HCl 0.5 mg 01/23/21 21:59 Hydromorphone 1 Mg/1 Ml Inj IV Q3H PRN Pain , Severe (7-10) Sodium Chloride 1,000 mls @ 42 mls/hr 01/23/21 20:15 Nacl 0.9% 1000 Ml IV DIRECT ANNAMARIA Ondansetron HCl 4 mg 01/23/21 20:06 01/23/21 20:47 Ondansetron 4 Mg/2 Ml Inj IV 4 mg Q8H PRN Administration Nausea And Vomiting Oxycodone/Acetaminophen 1 tab 01/23/21 20:06 Oxycodone /Acetaminophen 5-325mg Tab PO Q12H PRN Pain, Moderate (4-6) Sodium Chloride 10 ml 01/23/21 22:00 Sodium Chloride 0.9% 10 Ml Flush Syringe IV BID ANNAMARIA Sodium Chloride 10 ml 01/23/21 20:06 Sodium Chloride 0.9% 10 Ml Flush Syringe IV PRN PRN LINE FLUSH
--- NOTE | 2021-01-24 16:15 | Event Note ---
Date: 01/24/21 Patient could not be found, patient was discharged last night according to the ED nurse [Per ED note]
== END 2021-01-23 22:30 | disposition home or self-care (01) ==
LOC: ED 13:26 → 4A 20:06
PROVIDERS: ADMIT Internal Medicine; ATTEND Internal Medicine
DX: N20.0 Calculus of kidney (principal); R10.9 Unspecified abdominal pain; E66.2 Morbid (severe) obesity with alveolar hypoventilation; R11.2 Nausea with vomiting, unspecified; D61.818 Other pancytopenia; Z68.41 Body mass index [BMI] 40.0-44.9, adult
CPT/HCPCS: 36415; 74176; 80053; 81001; 83615; 83690; 84703; 85025; 85384; 85610; 85730; 86850; 86900; 86901; 86920; 96361; 96374; 96375; 96376; 99291; G0378; J1170; J2270; J2405; J7030; J7040; P9016; 85007